=== PATIENT | female | born 1985 | race African-American/Black ===

== ENCOUNTER 2016-11-08 08:01 | Emergency (ER) | payer OTHER ==
[2016-11-08 08:14] VITALS: PULSE 88; TEMP 98.4; BMI 23.3
[2016-11-08 08:15] VITALS: BP 178/118
--- NOTE | 2016-11-08 08:49 | PDOC ---
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 States left knee is much more painful. His swollen, use hot packs which did not resolve pain. States is difficult to walk, 11/08/16 09:05 11/08/16 09:31 Occurred: reports: yesterday Severity: reports: mild Pain Location: reports: lower extremity (bialteral knees ) Loss of Consciousness: no loss of consciousness Associated Symptoms (Fall): denies symptoms Past History - Travel Traveled outside of the country in the last 30 days: No Close contact w/someone who was outside of country & ill: No - Past Medical History Allergies/Adverse Reactions: Allergies Allergy/AdvReac Type Severity Reaction Status Date / Time oxycodone [Oxycodone] Allergy Nausea Verified 11/08/16 08:13 Home Medications: Ambulatory Orders NK [No Known Home Medication] 11/08/16 Anemia: Yes HTN: Yes (NOT COMPLIANT WITH BP MEDS) Suicide Attempt (Hx): No Other medical history: LUPUS - Immunization History Immunization Up to Date: Yes - Psycho/Social/Smoking Cessation Hx Anxiety: No Suicidal Ideation: No Smoking Status: No Smoking History: Never smoked Have you smoked in the past 12 months: No Number of Cigarettes Smoked Daily: 0 Hx Alcohol Use: Yes (OCCASIONALLY) Drug/Substance Use Hx: Yes Substance Use Type: Marijuana Hx Substance Use Treatment: No Trauma Specific PMHX - Complaint Specific PMHX Back Injury: Yes Neck Injury: Yes Review of Systems - Review of Systems Able to Perform ROS?: Yes Is the patient limited Irish proficient: Yes Constitutional: Yes: Symptoms Reported, See HPI, Malaise HEENTM: Yes: See HPI. No: Symptoms Reported Respiratory: Yes: Symptoms reported Musculoskeletal: Yes: Symptoms Reported, See HPI, Joint Pain (left knee), Joint Swelling Integumentary: Yes: Symptoms Reported Neurological: No: Symptoms reported All Other Systems: Reviewed and Negative *Physical Exam - Vital Signs Last Vital Signs Temp Pulse Resp BP Pulse Ox 98.4 F 88 16 178/118 99 11/08/16 08:10 06/16/17 08:10 11/08/16 08:10 11/08/16 08:10 11/08/16 08:10 - Physical Exam General Appearance: Yes: Nourished (0), Appropriately Dressed, Apparent Distress , Mild Distress HEENT: positive: GRACIELA, Normal ENT Inspection, TMs Normal, Pharynx Normal Neck: positive: Supple, Lymphadenopathy (R). negative: Tender Respiratory/Chest: positive: Lungs Clear, Normal Breath Sounds. negative: Chest Tender Cardiovascular: positive: Regular Rate Extremity: positive: Normal Capillary Refill, Normal Inspection, Tender. negative: Normal Range of Motion Integumentary: positive: Swelling, Ecchymosis, Bruising (2 left knee, worse at the inferior patella, flexion and extension limited secondary to tenderness that knee joint. 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 Will immobilize and have follow up with Orth O if persistent swelling and pain *DC/Admit/Observation/Transfer Diagnosis at time of Disposition: Contusion of knee Qualifiers: Encounter type: initial encounter Laterality: right Qualified Code(s): S80.01XA - Contusion of right knee, initial encounter - Discharge Dispostion Disposition: HOME Condition at time of disposition: Stable Admit: No - Referrals Referrals: Refugio Rosario MD [Primary Care Provider] - Mika Austin MD [Staff Physician] - - Patient Instructions Printed Discharge Instructions: DI for Contusion Additional Instructions: Rest, ice to area on and off for 15 minutes 4-6 times a day Avoid heavy lifting or exercise until pain and swelling is resolved or until further directed Keep area highly elevated to reduce swelling Use splints/Tim wrap as directed Followup with orthopedist in one to 2 days if not improving, if significantly improved may wait one week for followup with orthopedist May use Tylenol 2-500 tablets every 6 hours as needed for pain - Post Discharge Activity Work/School Note: Back to Work
[2016-11-08] MEDS ORDERED: ACETAMINOPHEN 325 MG TABLET (FP) ONE (09:42)
== END 2016-11-08 09:38 | disposition home or self-care (01) ==
LOC: JER 08:01 → JERFT 08:01
PROC: 2W3MXYZ Immobilization of Left Lower Extremity using Other Device (ICD-10-PCS; principal; 2016-11-08)
DX: S80.01XA Contusion of right knee, initial encounter (principal); S80.02XA Contusion of left knee, initial encounter; W01.0XXA Fall on same level from slipping, tripping and stumbling without subsequent striking against object, initial encounter; Y93.89 Activity, other specified; Y92.198 Other place in other specified residential institution as the place of occurrence of the external cause; Y99.0 Civilian activity done for income or pay; I10 Essential (primary) hypertension; Z91.14 Patient's other noncompliance with medication regimen
CPT/HCPCS: 84703; 99281-25

== ENCOUNTER 2017-02-26 09:36 | Emergency (ER) | payer OTHER ==
[2017-02-26 09:41] VITALS: TEMP 98.2; BMI 22.9
--- NOTE | 2017-02-26 09:58 | PDOC ---
History of Present Illness - General Chief Complaint: Blood Pressure Problem Stated Complaint: BP PROBLEM (20 WKS ) Time Seen by Provider: 02/26/17 09:53 History Source: Patient Exam Limitations: No Limitations - History of Present Illness Initial Comments: 02/26/17 10:46 Patient is a 31-year-old female currently 19 weeks and 2 days with past medical history of lupus, hypertension, sickle cell anemia, also thalassemia trait who presents to the emergency department complaining of high blood pressure and head heaviness. Patient states that she measured her blood pressure at her job and it was 140/100. She then took her prescribed labetalol dose. She came to the ER because she was concerned and she was also having headache/head heaviness. Her blood pressure upon arrival to the emergency department was 130/80. Denies fevers, chills, lightheadedness nausea, vomiting, vaginal bleeding, vaginal discharge, abdominal pain, frequency, urgency and dysuria. 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 She used to be a patient of Dr. Boykin however she has left practice and has a new appointment with Dr. Underwood on 03/06/17. Past History - Travel Traveled outside of the country in the last 30 days: Yes Close contact w/someone who was outside of country & ill: No - Past Medical History Allergies/Adverse Reactions: Allergies Allergy/AdvReac Type Severity Reaction Status Date / Time oxycodone [Oxycodone] Allergy Nausea Verified 02/26/17 09:41 Home Medications: Ambulatory Orders Labetalol HCl 100 mg PO BID 02/26/17 Anemia: Yes HTN: Yes Other medical history: LUPUS - Immunization History Immunization Up to Date: Yes - Suicide/Smoking/Psychosocial Hx Smoking Status: No Smoking History: Never smoked Have you smoked in the past 12 months: No Number of Cigarettes Smoked Daily: 0 Hx Alcohol Use: No Drug/Substance Use Hx: No Substance Use Type: Marijuana Hx Substance Use Treatment: No Review of Systems - Review of Systems Able to Perform ROS?: Yes Comments:: 02/26/17 09:42 CONSTITUTIONAL: Absent: fever, chills, diaphoresis, generalized weakness, malaise, loss of appetite HEENT: Absent: rhinorrhea, nasal congestion, throat pain, throat swelling, difficulty swallowing, mouth swelling, ear pain, eye pain, visual Changes CARDIOVASCULAR: Absent: chest pain, loss of consciousness, palpitations, irregular heart rate, peripheral edema RESPIRATORY: Absent: cough, shortness of breath, dyspnea with exertion, orthopnea, wheezing, stridor, hemoptysis GASTROINTESTINAL: Absent: abdominal pain, abdominal distension, nausea, vomiting, diarrhea, constipation, melena, hematochezia GENITOURINARY: Absent: dysuria, frequency, urgency, hesitancy, hematuria, flank pain, genital pain MUSCULOSKELETAL: Absent: myalgia, arthralgia, joint swelling SKIN: Absent: rash, itching, pallor HEMATOLOGIC/IMMUNOLOGIC: Absent: easy bleeding, easy bruising, lymphadenopathy, frequent infections ENDOCRINE: Absent: unexplained weight gain, unexplained weight loss, heat intolerance, cold intolerance NEUROLOGIC: Present: Headache Absent: focal weakness or paresthesias, dizziness, unsteady gait, seizure, mental status changes, bladder or bowel incontinence PSYCHIATRIC: Absent: anxiety, depression, suicidal or homicidal ideation, hallucinations. Is the patient limited Syriac proficient: No *Physical Exam - Vital Signs Last Vital Signs Temp Pulse Resp BP Pulse Ox 98.2 F 82 20 127/85 100 02/26/17 09:37 02/26/17 09:37 02/26/17 09:37 02/26/17 09:37 02/26/17 09:37 - Physical Exam Comments: 02/26/17 09:43 GENERAL: Well developed, well nourished. Awake and alert. No acute distress. HEENT: Normocephalic, atraumatic. PERRLA, EOMI. No conjunctival pallor. Sclera are non- icteric. Moist mucous membranes. Oropharynx is clear. NECK: Supple. Full ROM. No JVD. Carotid pulses 2+ and symmetric, without bruits. No thyromegaly. No lymphadenopathy. CARDIOVASCULAR: Regular rate and rhythm. No murmurs, rubs, or gallops. Distal pulses are 2+ and symmetric. PULMONARY: No evidence of respiratory distress. Lungs clear to auscultation bilaterally. No wheezing, rales or rhonchi. ABDOMINAL: Soft. Non-tender. Non-distended. No rebound or guarding. No organomegaly. Normoactive bowel sounds. MUSCULOSKELETAL Normal range of motion at all joints. No bony deformities or tenderness. No CVA tenderness. EXTREMITIES: No cyanosis. No clubbing. No edema. No calf tenderness. SKIN: Warm and dry. Normal capillary refill. No rashes. No jaundice. NEUROLOGICAL: Alert, awake, appropriate. Cranial nerves 2-12 intact. No deficits to light touch and temperature in face, upper extremities and lower extremities. No motor deficits in the in face, upper extremities and lower extremities. Normoreflexic in the upper and lower extremities. Normal speech. Toes are down- going bilaterally. Gait is normal without ataxia. PSYCHIATRIC: Cooperative. Good eye contact. Appropriate mood and affect. ED Treatment Course - LABORATORY CBC & Chemistry Diagram: 02/26/17 12:57 02/26/17 11:00 Medical Decision Making - Medical Decision Making 02/26/17 10:47 *DC/Admit/Observation/Transfer Diagnosis at time of Disposition: with 20 completed weeks gestation Headache Qualifiers: Headache type: unspecified Headache chronicity pattern: acute headache Intractability: not intractable Qualified Code(s): R51 - Headache - Discharge Dispostion Disposition: HOME Condition at time of disposition: Improved Admit: No - Referrals Referrals: Refugio Rosario MD [Primary Care Provider] - - Patient Instructions Printed Discharge Instructions: DI for High Blood Pressure, DI for Headache Additional Instructions: Your blood pressure today normalize in the ER. Continue her home with Labetalol as prescribed. Your headache got better with Tylenol. If you have recurring headache you may take Tylenol at home not to exceed 4000 mg a day. Follow up with Dr. Rosario. Follow-up with Dr. Underwood your new TRANSITION RN on 03/06/17. Return to the emergency department if you have worsening headache, weakness, lightheadedness, or any changes in your symptoms. - Post Discharge Activity Forms/Work/School Notes: Back to Work
[2017-02-26 11:12] LABS: BASOPHIL 0.1 % (0-2.0); EOSINOPHIL 1.1 % (0-4.5); MCH 26.1 pg (25.7-33.7); MCHC 33.6 g/dl (32.0-36.0); MEAN CELL VOLUME 77.9 fl (80-96); MEAN PLT VOLUME 6.5 fl (7.5-11.1); NEUTROPHILS 80.2 % (42.8-82.8); PLATELET COUNT 420 K/MM3 (134-434); RDW 14.7 % (11.6-15.6); WHITE BLOOD COUNT 9.9 K/mm3 (4.0-10.0)
[2017-02-26 11:24] LABS: ALBUMIN 1.5 g/dl (3.4-5.0); ALK PHOS 51 U/L (45-117); ANION GAP 8 (8-16); BILIRUBIN,TOTAL 0.1 mg/dL (0.2-1.0); CALCIUM 7.8 mg/dL (8.5-10.1); CO2 23 mmol/L (21-32); GLUCOSE,RANDOM 81 mg/dL (74-106); SGOT/AST 21 U/L (15-37); SGPT/ALT 16 U/L (12-78); TOT PROT 5.1 g/dl (6.4-8.2)
[2017-02-26 11:36] LABS: URINE APPEARANCE CLEAR; URINE BILIRUBIN NEGATIVE (NEGATIVE); URINE BLOOD NEGATIVE (NEGATIVE); URINE COLOR LTYELLOW; URINE GLUCOSE (UA) NEGATIVE (NEGATIVE); URINE KETONE NEGATIVE (NEGATIVE); URINE LEUK ESTERASE NEGATIVE (NEGATIVE); URINE NITRITE NEGATIVE (NEGATIVE); URINE UROBILINOGEN NEGATIVE mg/dL (0.2-1.0)
[2017-02-26 11:41] LABS: URINE PROTEIN 3+ (NEGATIVE)
[2017-02-26 11:42] LABS: URINE RBC 1 /hpf (0-3); URINE WBC 1 /hpf (3-5)
[2017-02-26] MEDS ORDERED: SODIUM CHLORIDE 500 ML IV STA (12:27)
[2017-02-26] MEDS ORDERED: ACETAMINOPHEN 1000 MG/100 ML VIAL (NON FORMULARY) IVPB ONE (12:45)
[2017-02-26 13:13] LABS: BASOPHIL 0.1 % (0-2.0); EOSINOPHIL 1.2 % (0-4.5); MCH 25.9 pg (25.7-33.7); MCHC 33.3 g/dl (32.0-36.0); MEAN CELL VOLUME 77.8 fl (80-96); MEAN PLT VOLUME 6.2 fl (7.5-11.1); NEUTROPHILS 80.8 % (42.8-82.8); PLATELET COUNT 439 K/MM3 (134-434); RDW 14.6 % (11.6-15.6); WHITE BLOOD COUNT 10.1 K/mm3 (4.0-10.0)
[2017-02-26 14:42] VITALS: BP 138/87; PULSE 72
== END 2017-02-26 14:54 | disposition home or self-care (01) ==
LOC: JER 09:36
DX: O26.892 Other specified pregnancy related conditions, second trimester (principal); Z3A.20 20 weeks gestation of pregnancy; R51 Headache
CPT/HCPCS: 36415; 80053; 81003; 81015; 85025; 85044; 86850; 86900; 86901; 87086; 99283-25

== ENCOUNTER 2017-03-12 12:44 | Emergency (ER) | payer OTHER ==
[2017-03-12 12:57] VITALS: TEMP 98.4; BMI 22.3
--- NOTE | 2017-03-12 14:17 | PDOC ---
History of Present Illness - General Chief Complaint: Lightheaded Stated Complaint: DIZZINESS (21 WKS ) Time Seen by Provider: 03/12/17 13:47 History Source: Patient Exam Limitations: No Limitations - History of Present Illness Initial Comments: 03/12/17 15:12 31F 22W presents to the ED for head heaviness/dizziness, similar presentation as her last visit on 02/26. She claims that her BP was high last night (140/102) so she took double her dose of labetalol this morning (200 -> 400mg). At her last visit the patient's labs revealed microcytic anemia (8 hcr) and proteinuria and was discharged home after her BP stabilized. Patient states that she went to her OBGYN last and was found to have a creatinine of 1.6 as well as proteinuria. Was scheduled to be admitted to [facility] labor and Delivery floors for high risk . Past History - Past Medical History Allergies/Adverse Reactions: Allergies Allergy/AdvReac Type Severity Reaction Status Date / Time oxycodone [Oxycodone] Allergy Nausea Verified 03/12/17 12:56 Home Medications: Ambulatory Orders Labetalol HCl [Normodyne -] 200 mg PO BID 03/12/17 [id number]/Iron Fumarate/FA/Dss [ 19 Tablet] 1 each PO DAILY 03/12/17 Anemia: Yes HTN: Yes - Immunization History Immunization Up to Date: Yes - Suicide/Smoking/Psychosocial Hx Smoking Status: No Smoking History: Never smoked Have you smoked in the past 12 months: No Number of Cigarettes Smoked Daily: 0 Hx Alcohol Use: No Drug/Substance Use Hx: No Substance Use Type: Marijuana Hx Substance Use Treatment: No Review of Systems - Review of Systems Able to Perform ROS?: No Constitutional: Yes: Weakness HEENTM: No: Blurred Vision, Recent change in vision, Double Vision Respiratory: No: Cough, Shortness of Breath Cardiac (ROS): Yes: Lightheadedness. No: Chest Pain, Irregular Heart Rate ABD/GI: No: Symptoms Reported : No: Symptoms Reported Neurological: No: Headache, Numbness, Paresthesia *Physical Exam - Vital Signs Last Vital Signs Temp Pulse Resp BP Pulse Ox 98.4 F 84 20 121/83 100 03/12/17 12:53 03/12/17 12:53 03/12/17 12:53 03/12/17 12:53 03/12/17 12:53 - Physical Exam General Appearance: Yes: Nourished, Appropriately Dressed. No: Apparent Distress HEENT: positive: EOMI, GRACIELA, Normal ENT Inspection Respiratory/Chest: positive: Lungs Clear, Normal Breath Sounds. negative: Chest Tender Cardiovascular: positive: Regular Rhythm, Regular Rate, S1, S2 Gastrointestinal/Abdominal: positive: Normal Bowel Sounds, Soft. negative: Tender Neurologic: positive: Normal Response. negative: Fully Oriented, Alert, Normal Mood/Affect ED Treatment Course - LABORATORY CBC & Chemistry Diagram: 03/12/17 15:20 03/12/17 15:20 Medical Decision Making - Medical Decision Making 03/12/17 16:21 31F 22W presents to the ED for head heaviness/dizziness, similar presentation as her last visit on 02/26. Labs lyte and UA ordered. OBGYN Dr. Boykin will be contact upon result Probable transfer to [facility] Persistent microcytic anemia, normal LFT's, Proteinuria 3+, creatinine 1.2. 03/12/17 18:31 Dr. Shelby Saldaña, OBGYN from [facility] accepted the patient for transfer. Spoke to Outpatient OBGYN infection preventionist for Dr. Kritsa Hinkle MD ([phone]) to update them, they will send their file to Dr. Saldaña. 03/12/17 18:37 *DC/Admit/Observation/Transfer Diagnosis at time of Disposition: High-risk - Discharge Dispostion Disposition: TRANSFER ACUTE CARE/OTHER HOSP Condition at time of disposition: Unchanged/Unknown Admit: No - Transfer to Acute Care Facility Receiving Facility: [facility]. Accepting Physician:: Dr. Shelby Saldaña
--- NOTE | 2017-03-12 15:03 | PDOC ---
Attending Attestation - Resident Resident Name: JossNoah - ED Attending Attestation I have performed the following: I have examined & evaluated the patient, The case was reviewed & discussed with the resident, I agree w/resident's findings & plan, Exceptions are as noted - HPI HPI: 03/12/17 17:22 31 F @ 22 weeks, with h/o HTN, SLE, presenting to ER with lightheadedness. Pt states that her symptoms began last night. She took her BP and found it to be >140 systolic. Pt took a double dose of her labetalol, which helped her BP, but pt reports persistent lightheadedness. Deneis F/C. Denies CP/SOB/ palpitations. Denies N/V/D. Denies abdominal pain. Pt presented earlier this month with similar complaints. She was found to be hypertensive at the time with proteinuria. Pt states that since then, she was seen by her OB, who diagnosed her with pre-eclampsia. Pt has appointment to follow up with high-risk OB at [facility]. - Physicial Exam PE: 03/12/17 17:25 "GENERAL: Awake, alert, and fully oriented, in no acute distress HEAD: No signs of trauma EYES: PERRLA, EOMI, sclera anicteric, conjunctiva clear ENT: Auricles normal inspection, hearing grossly normal, nares patent, oropharynx clear without exudates. Moist mucosa NECK: Nontender, no stepoffs, Normal ROM, supple, no lymphadenopathy, JVD, or masses LUNGS: Breath sounds equal, clear to auscultation bilaterally. No wheezes, and no crackles HEART: Regular rate and rhythm, normal S1 and S2, no murmurs, rubs or gallops ABDOMEN: Gravid, Soft, nontender, normoactive bowel sounds. No guarding, no rebound. No masses EXTREMITIES: Normal range of motion, no edema. No clubbing or cyanosis. No cords, erythema, or tenderness NEUROLOGICAL: Cranial nerves II through XII intact. 5/5 strength and sensation in all extremities, Normal speech, normal gait SKIN: Warm, Dry, normal turgor, no rashes or lesions noted. " - Medical Decision Making 03/12/17 17:25 31 F @ 22 weeks, presenting with lightheadedness. Was hypertensive last night. Likely pre-eclampsia. - Labs, UA - OB consult - Possible transfer to [facility] for high-risk OB. 03/12/17 08:55 Pt with 3+ protein on UA. Given reported BP of 140s systolic last night, pt is lkely in pre-eclampsia. Pt will need transfer to [facility] for high-risk OB management. Pt with normal vitals currently, no complaints. Clinically stable for transfer.
[2017-03-12 15:40] LABS: BASOPHIL 0.2 % (0-2.0); EOSINOPHIL 1.1 % (0-4.5); MCH 26.1 pg (25.7-33.7); MCHC 33.3 g/dl (32.0-36.0); MEAN CELL VOLUME 78.3 fl (80-96); NEUTROPHILS 83.2 % (42.8-82.8); PLATELET COUNT 474 K/MM3 (134-434); RDW 14.4 % (11.6-15.6); WHITE BLOOD COUNT 11.3 K/mm3 (4.0-10.0)
[2017-03-12 16:16] LABS: ALBUMIN 1.6 g/dl (3.4-5.0); ANION GAP 7 (8-16); CALCIUM 8.1 mg/dL (8.5-10.1); CO2 22 mmol/L (21-32); GLUCOSE,RANDOM 85 mg/dL (74-106)
[2017-03-12 16:35] LABS: ALK PHOS 56 U/L (45-117); BILIRUBIN,TOTAL 0.2 mg/dL (0.2-1.0); CREATININE 1.2 mg/dL (0.55-1.02); SGOT/AST 24 U/L (15-37); SGPT/ALT 16 U/L (12-78); TOT PROT 5.5 g/dl (6.4-8.2)
[2017-03-12 16:50] LABS: URINE APPEARANCE CLEAR; URINE BILIRUBIN NEGATIVE (NEGATIVE); URINE BLOOD 1+ (NEGATIVE); URINE COLOR STRAW; URINE GLUCOSE (UA) NEGATIVE (NEGATIVE); URINE KETONE NEGATIVE (NEGATIVE); URINE NITRITE NEGATIVE (NEGATIVE); URINE UROBILINOGEN NEGATIVE mg/dL (0.2-1.0)
[2017-03-12 17:07] LABS: URINE PROTEIN 3+ (NEGATIVE)
[2017-03-12 17:43] LABS: URINE RBC 1 /hpf (0-3); URINE WBC 2 /hpf (3-5)
[2017-03-12 18:37] VITALS: BP 138/93; PULSE 79
[2017-03-12 19:55] LABS: URINE LEUK ESTERASE Negative (NEGATIVE)
== END 2017-03-12 18:44 | disposition short-term general hospital (02) ==
LOC: JER 12:44
DX: O26.892 Other specified pregnancy related conditions, second trimester (principal); O11.2 Pre-existing hypertension with pre-eclampsia, second trimester; Z3A.22 22 weeks gestation of pregnancy
CPT/HCPCS: 36415; 80053; 81003; 81015; 84702; 85025; 99283-25

== ENCOUNTER 2017-03-27 07:28 | Emergency (ER) | payer OTHER ==
[2017-03-27 07:34] VITALS: BMI 22.4
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
[2017-03-27] MEDS ORDERED: LABETALOL HCL 200 MG TABLET (FP) PO ONE (08:53)
[2017-03-27] MEDS ORDERED: LABETALOL HCL 100 MG TABLET (FP) ONE (09:08)
[2017-03-27 09:11] LABS: BASOPHIL 0.3 % (0-2.0); EOSINOPHIL 1.1 % (0-4.5); MCH 26.2 pg (25.7-33.7); MCHC 33.2 g/dl (32.0-36.0); MEAN PLT VOLUME 6.7 fl (7.5-11.1); PLATELET COUNT 350 K/MM3 (134-434); RDW 14.3 % (11.6-15.6)
[2017-03-27 09:14] VITALS: TEMP 98.2
[2017-03-27 09:40] LABS: ALBUMIN 1.6 g/dl (3.4-5.0); ALK PHOS 47 U/L (45-117); ANION GAP 10 (8-16); BILIRUBIN,TOTAL 0.2 mg/dL (0.2-1.0); CO2 19 mmol/L (21-32); CREATININE 1.1 mg/dL (0.55-1.02); GLUCOSE,RANDOM 64 mg/dL (74-106); SGOT/AST 14 U/L (15-37); SGPT/ALT 14 U/L (12-78); TOT PROT 5.1 g/dl (6.4-8.2)
[2017-03-27 12:03] LABS: URINE APPEARANCE SLCLOUDY; URINE BILIRUBIN NEGATIVE (NEGATIVE); URINE BLOOD NEGATIVE (NEGATIVE); URINE COLOR LTYELLOW; URINE GLUCOSE (UA) NEGATIVE (NEGATIVE); URINE KETONE NEGATIVE (NEGATIVE); URINE NITRITE NEGATIVE (NEGATIVE); URINE UROBILINOGEN NEGATIVE mg/dL (0.2-1.0)
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
[2017-03-27 12:05] LABS: URINE PROTEIN 3+ (NEGATIVE)
[2017-03-27 12:14] LABS: GRANULAR CASTS 1 /lpf; URINE HYALINE CAST 4 /lpf; URINE MUCUS RARE; URINE RBC 1 /hpf (0-3); URINE WBC 1 /hpf (3-5)
[2017-03-27] MEDS ORDERED: LABETALOL HCL 5 MG/1 ML (100MG/20 ML VIAL) IVPUSH ONE (12:52)
[2017-03-27 13:04] LABS: URINE LEUK ESTERASE Negative (NEGATIVE)
[2017-03-27 13:41] VITALS: BP 124/85; PULSE 72
== END 2017-03-27 13:40 | disposition short-term general hospital (02) ==
LOC: JER 07:28
PROC: 3E033GC Introduction of Other Therapeutic Substance into Peripheral Vein, Percutaneous Approach (ICD-10-PCS; principal; 2017-03-27)
DX: O11.2 Pre-existing hypertension with pre-eclampsia, second trimester (principal); Z3A.22 22 weeks gestation of pregnancy; V43.52XA Car driver injured in collision with other type car in traffic accident, initial encounter; Y92.414 Local residential or business street as the place of occurrence of the external cause; Y93.89 Activity, other specified; Y99.8 Other external cause status
CPT/HCPCS: 36415; 76801-TC; 80053; 81003; 81015; 84703; 85025; 99281-25

== ENCOUNTER 2018-06-08 22:14 | Emergency (ER) | payer OTHER ==
[2018-06-08 22:24] VITALS: TEMP 97.9; BMI 21.6
--- NOTE | 2018-06-08 23:06 | PDOC ---
History of Present Illness - General Chief Complaint: Weakness Stated Complaint: WEAKNESS Time Seen by Provider: 06/08/18 23:06 - History of Present Illness Initial Comments: 32 year old female with PMH of SLE (on prednisone 5 daily, hydrochloroquine, and cellcept), lupus nephritis, anemia (s/p multiple transfusions, last one, one year ago), and HTN presenting with three weeks of cough and fatigue. Patient states that she has been coughing with production of yellow-green sputum and has been very fatigued with a decreased appetite over the past three weeks. Denies fevers, chills, nausea,vomiting, diarrhea, or other symptoms. Her PCP is Dr. 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 06/09/18 00:04 Past History - Past Medical History Allergies/Adverse Reactions: Allergies Allergy/AdvReac Type Severity Reaction Status Date / Time oxycodone [Oxycodone] Allergy Nausea Verified 03/27/17 07:34 Home Medications: Ambulatory Orders Labetalol HCl [Normodyne -] 200 mg PO BID 03/12/17 Prenat 115/Iron Fum/Folic/Dss [ 19 Tablet] 1 each PO DAILY 03/12/17 Anemia: Yes COPD: No HTN: Yes - Immunization History Immunization Up to Date: Yes - Suicide/Smoking/Psychosocial Hx Smoking Status: No Smoking History: Never smoked Have you smoked in the past 12 months: No Number of Cigarettes Smoked Daily: 0 Hx Alcohol Use: No Drug/Substance Use Hx: No Substance Use Type: Marijuana Hx Substance Use Treatment: No Review of Systems - Review of Systems Constitutional: Yes: Loss of Appetite. No: Chills, Diaphoresis, Fever, Malaise HEENTM: No: Eye Pain, Blurred Vision, Tearing Respiratory: Yes: Cough. No: Orthopnea, Shortness of Breath, Stridor, Wheezing Cardiac (ROS): No: Chest Pain, Edema, Lightheadedness, Palpitations ABD/GI: Yes: Poor Appetite, Poor Fluid Intake. No: Diarrhea, Nausea, Vomiting : No: Burning, Dysuria, Discharge, Frequency Musculoskeletal: No: Gout, Joint Pain, Joint Swelling Integumentary: No: Bruising, Change in Color, Lesions, Lumps Neurological: No: Headache, Numbness, Paresthesia Psychiatric: No: Anxiety, Depression Endocrine: No: Intolerance to Cold, Intolerance to Heat Hematologic/Lymphatic: Yes: Anemia. No: Blood Clots, Easy Bleeding *Physical Exam - Vital Signs Last Vital Signs Temp Pulse Resp BP Pulse Ox 97.9 F 63 20 146/104 H 100 06/08/18 22:20 06/08/18 22:20 06/08/18 22:20 06/08/18 22:20 06/08/18 22:20 - Physical Exam General Appearance: Yes: Nourished, Appropriately Dressed. No: Apparent Distress HEENT: positive: EOMI, GRACIELA, Normal ENT Inspection, Normal Voice, Pale Conjunctivae Neck: positive: Trachea midline, Normal Thyroid. negative: Tender, Rigid Respiratory/Chest: positive: Lungs Clear, Normal Breath Sounds. negative: Chest Tender, Respiratory Distress, Accessory Muscle Use Cardiovascular: positive: Regular Rhythm, Regular Rate Gastrointestinal/Abdominal: positive: Normal Bowel Sounds, Flat, Soft. negative : Tender Lymphatic: negative: Adenopathy, Tenderness Musculoskeletal: positive: Normal Inspection. negative: Decreased Range of Motion Extremity: positive: Normal Capillary Refill, Normal Inspection, Normal Range of Motion. negative: Tender Neurologic: positive: Fully Oriented, Alert, Normal Mood/Affect, Normal Response , Motor Strength 5/5 Moderate Sedation - Procedure Monitoring Vital Signs: Procedure Monitoring Vital Signs Temperature 97.9 F 06/08/18 22:20 Pulse Rate 63 06/08/18 22:20 Respiratory Rate 20 06/08/18 22:20 Blood Pressure 146/104 H 06/08/18 22:20 O2 Sat by Pulse Oximetry (%) 100 06/08/18 22:20 Medical Decision Making - Medical Decision Making 32 year old female with SLE presenting with cough and fatigue x 3 weeks concerning for pneumonia vs. acute anemia. Patient pending lab work and CXR. Given prednisone usage, hydroxyxhloroquine usage and history of SLE she is at risk for opportunistic infections and atypical presentation for non- opportunistic infections. Signed out to Dr. Laguerre in stable condition. 06/09/18 00:09 *DC/Admit/Observation/Transfer Diagnosis at time of Disposition: SLE (systemic lupus erythematosus related syndrome) - Referrals Referrals: Refugio Rosario MD [Primary Care Provider] - - Patient Instructions - Post Discharge Activity
--- NOTE | 2018-06-08 23:34 | PDOC ---
Attending Attestation - Resident Resident Name: ManoloRamonabam - ED Attending Attestation I have performed the following: I have examined & evaluated the patient, The case was reviewed & discussed with the resident, I agree w/resident's findings & plan, Exceptions are as noted - HPI HPI: 06/08/18 23:33 32 yo female with PMH of SLE,lupus nephritis,HTN,anemia, p/w generalized weakness, fatigued and 3 weeks of cough - Physicial Exam PE: 06/09/18 00:18 32 yo female with cough head ncat neck supple lungs cta b/l cvs [id number] abd no rebound,no guarding ext no edema skn warm and dry neuro axox3,ambulatory psych appropriate - Medical Decision Making 06/09/18 00:20 cbc,preg test,ekg,chemistries,type and screen pending
[2018-06-08 23:46] LABS: HCG,QUALITATIVE URINE Negative; URINE APPEARANCE CLEAR; URINE BILIRUBIN NEGATIVE (<2.0 mg/dL); URINE COLOR LTYELLOW; URINE GLUCOSE (UA) NEGATIVE (NEGATIVE); URINE KETONE NEGATIVE (NEGATIVE); URINE LEUK ESTERASE NEGATIVE (NEGATIVE); URINE NITRITE NEGATIVE (NEGATIVE); URINE PROTEIN 3+ (NEGATIVE); URINE UROBILINOGEN NEGATIVE mg/dL (0.2-1.0)
[2018-06-08 23:51] LABS: EPI CELLS RARE /HPF (FEW); URINE MUCUS RARE
[2018-06-09 00:50] LABS: BASO % 0.3 % (0-2.0); EOS % 3.8 % (0-4.5); HEMATOCRIT 33.5 % (32.4-45.2); HEMOGLOBIN 11.2 GM/dL (10.7-15.3); LYMPH % 34.9 % (8-40); MCH 26.7 pg (25.7-33.7); MCHC 33.6 g/dl (32.0-36.0); MEAN CELL VOLUME 79.4 fl (80-96); MEAN PLT VOLUME 7.6 fl (7.5-11.1); MONO % 5.5 % (3.8-10.2); NEUT % 55.5 % (42.8-82.8); PLATELET COUNT 496 K/MM3 (134-434); RBC 4.21 M/mm3 (3.60-5.2); RDW 14.2 % (11.6-15.6); WHITE BLOOD COUNT 6.4 K/mm3 (4.0-10.0)
[2018-06-09 01:02] LABS: INR 1.01 (0.83-1.09); PROTHROMBIN TIME (PATIENT) 11.9 SEC (9.7-13.0)
[2018-06-09 01:23] LABS: ALBUMIN 2.6 g/dl (3.4-5.0); ALK PHOS 89 U/L (45-117); ANION GAP 5 MMOL/L (8-16); BILIRUBIN,TOTAL 0.2 mg/dL (0.2-1); BLOOD UREA NITROGEN 21 mg/dL (7-18); CALCIUM 8.6 mg/dL (8.5-10.1); CHLORIDE 110 mmol/L (98-107); CO2 24 mmol/L (21-32); CREATININE 1.4 mg/dL (0.55-1.3); GLUCOSE,RANDOM 76 mg/dL (74-106); POTASSIUM 5.3 mmol/L (3.5-5.1); SGOT/AST 27 U/L (15-37); SGPT/ALT 12 U/L (13-61); SODIUM 139 mmol/L (136-145); TOT PROT 6.7 g/dl (6.4-8.2)
[2018-06-09] MEDS ORDERED: SODIUM CHLORIDE 0.9% 500 ML INFUS.BAG IV ONE (01:25)
--- NOTE | 2018-06-09 01:57 | PDOC ---
*Physical Exam - Vital Signs Last Vital Signs Temp Pulse Resp BP Pulse Ox 97.9 F 63 20 146/104 H 100 06/08/18 22:20 06/08/18 22:20 06/08/18 22:20 06/08/18 22:20 06/08/18 22:20 - Physical Exam Comments: Patient's care was endorsed to me by Dr. French at the end of his shift. Patient with h/o SLE p/w cough for the past 2-3 weeks. Pending labs and CXR, then will decide dispo. ED Treatment Course - LABORATORY CBC & Chemistry Diagram: 06/09/18 00:04 06/09/18 00:04 - ADDITIONAL ORDERS Additional order review: Laboratory Results 06/09/18 06/09/18 06/09/18 00:04 00:04 00:04 PT with INR 11.90 INR 1.01 Sodium 139 Potassium 5.3 H Chloride 110 H Carbon Dioxide 24 Anion Gap 5 L BUN 21 H Creatinine 1.4 H Creat Clearance w eGFR 43.31 Random Glucose 76 Calcium 8.6 Total Bilirubin 0.2 AST 27 ALT 12 L Alkaline Phosphatase 89 Total Protein 6.7 Albumin 2.6 L Urine Color Urine Appearance Urine pH Ur Specific [place] Urine Protein Urine Glucose (UA) Urine Ketones Urine Blood Urine Nitrite Urine Bilirubin Urine Urobilinogen Ur Leukocyte Esterase Urine WBC (Auto) Urine RBC (Auto) Ur Epithelial Cells Urine Mucus Urine HCG, Qual Blood Type AB POSITIVE Antibody Screen Negative 06/08/18 23:21 PT with INR INR Sodium Potassium Chloride Carbon Dioxide Anion Gap BUN Creatinine Creat Clearance w eGFR Random Glucose Calcium Total Bilirubin AST ALT Alkaline Phosphatase Total Protein Albumin Urine Color Ltyellow Urine Appearance Clear Urine pH 5.0 Ur Specific [place] 1.012 Urine Protein 3+ H Urine Glucose (UA) Negative Urine Ketones Negative Urine Blood Negative Urine Nitrite Negative Urine Bilirubin Negative Urine Urobilinogen Negative Ur Leukocyte Esterase Negative Urine WBC (Auto) 1 Urine RBC (Auto) 1 Ur Epithelial Cells Rare Urine Mucus Rare Urine HCG, Qual Negative Blood Type Antibody Screen 06/09/18 00:04 RBC 4.21 MCV 79.4 L MCHC 33.6 RDW 14.2 MPV 7.6 D Neutrophils % 55.5 D Lymphocytes % 34.9 D Monocytes % 5.5 Eosinophils % 3.8 D Basophils % 0.3 - Medications Given in the ED: ED Medications Discontinued Medications Generic Name Dose Route Start Last Admin Trade Name Silviano PRN Reason Stop Dose Admin Sodium Chloride 500 ml 06/09/18 01:25 06/09/18 01:47 Normal Saline - IV 06/09/18 01:26 500 ml ONCE ONE Administration Medical Decision Making - Medical Decision Making Laboratory Tests 06/08/18 06/09/18 06/09/18 23:21 00:04 00:04 WBC 6.4 RBC 4.21 Hgb 11.2 Hct 33.5 MCV 79.4 L MCH 26.7 MCHC 33.6 RDW 14.2 Plt Count 496 H D MPV 7.6 D Absolute Neuts (auto) 3.5 Neutrophils % 55.5 D Lymphocytes % 34.9 D Monocytes % 5.5 Eosinophils % 3.8 D Basophils % 0.3 Nucleated RBC % 0 PT with INR 11.90 INR 1.01 Sodium Potassium Chloride Carbon Dioxide Anion Gap BUN Creatinine Creat Clearance w eGFR Random Glucose Calcium Total Bilirubin AST ALT Alkaline Phosphatase Total Protein Albumin Urine Color Ltyellow Urine Appearance Clear Urine pH 5.0 Ur Specific [place] 1.012 Urine Protein 3+ H Urine Glucose (UA) Negative Urine Ketones Negative Urine Blood Negative Urine Nitrite Negative Urine Bilirubin Negative Urine Urobilinogen Negative Ur Leukocyte Esterase Negative Urine WBC (Auto) 1 Urine RBC (Auto) 1 Ur Epithelial Cells Rare Urine Mucus Rare Urine HCG, Qual Negative Blood Type Antibody Screen 06/09/18 06/09/18 00:04 00:04 WBC RBC Hgb Hct MCV MCH MCHC RDW Plt Count MPV Absolute Neuts (auto) Neutrophils % Lymphocytes % Monocytes % Eosinophils % Basophils % Nucleated RBC % PT with INR INR Sodium 139 Potassium 5.3 H Chloride 110 H Carbon Dioxide 24 Anion Gap 5 L BUN 21 H Creatinine 1.4 H Creat Clearance w eGFR 43.31 Random Glucose 76 Calcium 8.6 Total Bilirubin 0.2 AST 27 ALT 12 L Alkaline Phosphatase 89 Total Protein 6.7 Albumin 2.6 L Urine Color Urine Appearance Urine pH Ur Specific [place] Urine Protein Urine Glucose (UA) Urine Ketones Urine Blood Urine Nitrite Urine Bilirubin Urine Urobilinogen Ur Leukocyte Esterase Urine WBC (Auto) Urine RBC (Auto) Ur Epithelial Cells Urine Mucus Urine HCG, Qual Blood Type AB POSITIVE Antibody Screen Negative CXR shows nothing acute. 06/09/18 03:41 Patient is getting saline neb for post-viral cough. Vital Signs Temperature 97.9 F 06/08/18 22:20 Pulse Rate 72 06/09/18 03:50 Respiratory Rate 18 06/09/18 03:50 Blood Pressure 183/119 H 06/09/18 03:50 O2 Sat by Pulse Oximetry (%) 100 06/09/18 03:50 06/09/18 04:07 Patient's BP elevated, she states higher than it has been in the past. She denies any headache, vision change, n/t/w focally, SOB, chest pain, or any other symptoms. She has her home nifedipine with her and prefers to take her own rather than me place an order. She takes her home nifedipine 90 mg. She will stay to have BP re-checked in 30 min. She has BP monitor at home. Vital Signs Temperature 97.9 F 06/08/18 22:20 Pulse Rate 70 06/09/18 04:54 Respiratory Rate 18 06/09/18 04:54 Blood Pressure 126/93 06/09/18 04:54 O2 Sat by Pulse Oximetry (%) 100 06/09/18 04:54 This patient has gotten significant relief of symptoms while in the ED. On last reassessment, vitals are wnl, pain is reasonably controlled, and exam is benign. Workup is not concerning for emergency-level pathology at this time. This patient is appropriate for discharge with close outpatient follow up. The family is comfortable with this plan and will follow up with their PCP and charge entry as scheduled. They agree to return to the ED with any new/worsening symptoms. Specific return precautions are discussed and they will come back to the ER if necessary. *DC/Admit/Observation/Transfer Diagnosis at time of Disposition: SLE (systemic lupus erythematosus related syndrome), Post-viral cough syndrome - Discharge Dispostion Disposition: HOME Condition at time of disposition: Stable Decision to Admit order: No - Referrals Referrals: Refugio Rosario MD [Primary Care Provider] - - Patient Instructions Additional Instructions: You were seen in the ER for a persistent cough. We did an exam, imaging studies , and gave you a breathing treatment. We believe you have a post-viral cough which can take weeks to resolve. After our assessment, we do not believe you are having a medical emergency at this time, and we believe you are safe to go home. Please follow up with your primary care provider in 1-3 days, and with your charge entry as scheduled. Call their clinic, tell them you were seen in the ER, and tell them you need a follow-up. If you have any new or worsening symptoms, especially severe chest pain or difficulty breathing, please come back to the ER at any time (24 hours a day). If you are having severe or life threatening symptoms, or symptoms that make it unsafe to drive or have someone drive you, please call 911. Your kidney values were very slightly elevated. Please discuss repeat laboratory testing for your kidneys with your PCP. Stay well-hydrated in the meantime. Your blood pressure was high tonight, but you did not have any abnormal symptoms. Please follow up with your doctors about this too. Come back to the ER if you have any headache, vision changes, numbness, tingling, weakness of one part or side of your body, chest pain, palpitations, or shortness of breath. Monitor your blood pressure at home extra carefully over the next few days. - Post Discharge Activity Forms/Work/School Notes: Back to Work
[2018-06-09] MEDS ORDERED: SODIUM CHLORIDE FOR INHALATION 3 ML VIAL.NEB IH ONE (03:32)
[2018-06-09] MEDS ORDERED: NIFEdipine E.R. 30 MG TABLET (FP) ONE (04:04)
[2018-06-09 04:55] VITALS: PULSE 70
[2018-06-09 04:59] VITALS: BP 126/93
--- NOTE | 2018-06-09 18:12 | EKG ---
Test Reason : Blood Pressure : / mmHG Vent. Rate : 066 BPM Atrial Rate : 066 BPM P-R Int : 194 ms QRS Dur : 080 ms QT Int : 390 ms P-R-T Axes : 043 060 059 degrees QTc Int : 408 ms NORMAL SINUS RHYTHM NORMAL ECG Confirmed by MD ESTEE, PALLAVI ([id number]) on 06/09/2018 6:12:04 PM Referred By: Confirmed By:PALLAVI FONTANEZ MD
== END 2018-06-09 04:59 | disposition home or self-care (01) ==
LOC: JER 22:14
PROC: 3E0F7GC Introduction of Other Therapeutic Substance into Respiratory Tract, Via Natural or Artificial Opening (ICD-10-PCS; principal; 2018-06-08)
DX: M32.19 Other organ or system involvement in systemic lupus erythematosus (principal); M32.14 Glomerular disease in systemic lupus erythematosus; R05 Cough; I10 Essential (primary) hypertension; D64.9 Anemia, unspecified
CPT/HCPCS: 36415; 71046-TC-FY; 80053; 81003; 81015; 84703; 85025; 85610; 86850; 86900; 86901; 87086; 93005; 93010; 99284-25